=== PATIENT | female | born 1980 ===

== ENCOUNTER → 2019-03-11 | Outpatient (CLI) | payer SELFPAY | END | disposition home or self-care (01) | LOC: LAB 16:46 → LAB SHORT 16:46 | DX: N90.89 Other specified noninflammatory disorders of vulva and perineum (principal); L08.9 Local infection of the skin and subcutaneous tissue, unspecified; N39.0 Urinary tract infection, site not specified | CPT/HCPCS: 87086; 87529 ==

== ENCOUNTER → 2020-08-25 | Outpatient (CLI) | payer BC ==
[2020-08-26 10:12] LABS: Candida species (DNA Probe) Negative (NEGATIVE); G. vaginalis (DNA Probe) Negative (NEGATIVE); T. vaginalis (DNA Probe) Negative (NEGATIVE)
[2020-08-28 01:10] LABS: CHLAMYDIA TRACHOMATIS, NAA Negative (Negative)
== END | disposition home or self-care (01) ==
LOC: LAB 17:00 → LAB SHORT 17:00
PROVIDERS: Nurse Practitioner Family
DX: N89.8 Other specified noninflammatory disorders of vagina (principal)
CPT/HCPCS: 87070; 87205; 87480; 87491; 87510; 87591; 87660

== ENCOUNTER → 2021-05-12 | Outpatient (CLI) | payer BC ==
[2021-05-13 14:11] LABS: HPV 16 Negative (Negative); HPV 18 Negative (Negative); HPV OTHER HR TYPES Negative (Negative)
== END | disposition home or self-care (01) ==
LOC: LAB SHORT 17:05
PROVIDERS: Obstetrics & Gynecology
DX: Z01.419 Encounter for gynecological examination (general) (routine) without abnormal findings (principal)
CPT/HCPCS: 87624; G0123

== ENCOUNTER → 2023-09-27 | Outpatient (CLI) | payer SELFPAY ==
[2023-09-27 19:52] LABS: Bacterial Vaginosis PCR Negative (NEGATIVE); Candida Group, PCR NOT DETECTED (NOT DETECT); Candida glabrata-krusei, PCR NOT DETECTED (NOT DETECT)
== END | disposition home or self-care (01) ==
LOC: LAB 17:38 → LAB SHORT 17:38
PROVIDERS: Nurse Practitioner
DX: N89.8 Other specified noninflammatory disorders of vagina (principal); R35.0 Frequency of micturition
CPT/HCPCS: 87086; 87481; 87661; 87801